=== PATIENT | female | born 1945 | race Caucasian/White ===

== ENCOUNTER 2016-07-06 17:01 | Emergency (ER) | payer MEDICARE, OTHER ==
[2016-07-06 17:55] LABS: BASOPHIL 0.1 % (0-2); EOSINOPHIL 3.3 % (0-7); HCT 43.5 % (37.0-47.0); HGB 14.7 g/dl (12.5-16.0); LYMPHOCYTE 20.4 % (15-48); MCH 30.9 pg (25.0-31.0); MCHC 33.8 g/dL (32.0-36.0); MCV 91.4 fL (78.0-100.0); MONOCYTE 7.8 % (0-12); MPV 8.9 fL (6.0-9.5); NEUTROPHIL 68.4 % (41-80); PLT 254 K/uL (150-400); RBC 4.76 M/uL (4.20-5.40); WBC 7.7 K/uL (4.0-10.5)
[2016-07-06 18:06] LABS: BILIRUBIN NEGATIVE (NEGATIVE); BLOOD NEGATIVE Ery/uL (NEGATIVE); CLARITY CLEAR (CLEAR); COLOR YELLOW (YELLOW); GLUCOSE (U) NORMAL (NORMAL); KETONE (U) NEGATIVE (NEGATIVE); LEUKOCYTES NEGATIVE Leu/uL (NEGATIVE); NITRITE NEGATIVE (NEGATIVE); PROTEIN NEGATIVE (NEGATIVE); SPECIFIC GRAVITY >=1.030 (1.001-1.030); UROBILINOGEN 0.2 mg/dL (0.2-1.0); pH 5.5 (5.0-9.0)
[2016-07-06 18:17] LABS: ALBUMIN 3.9 g/dL (3.4-4.8); BILIRUBIN - TOTAL 0.6 mg/dL (0.1-1.0); GLOBULIN (CALCULATION) 3.1 g/dL (2.2-4.2); POTASSIUM 3.7 mmol/L (3.5-5.1)
== END 2016-07-06 19:24 | disposition home or self-care (01) ==
LOC: FER 17:01
PROVIDERS: Nurse Practitioner
DX: J45.909 Unspecified asthma, uncomplicated (principal); I10 Essential (primary) hypertension; Z79.899 Other long term (current) drug therapy
CPT/HCPCS: 36415; 71020; 80053; 81003; 85025; 87804; 87899; 94640; J2405; J2930

== ENCOUNTER 2016-10-15 12:44 | Emergency (ER) | payer MEDICARE, OTHER ==
[2016-10-15 13:24] LABS: INR 1.01 (0.9-1.2); PROTHROMBIN TIME 12.9 SECONDS (11.7-14.0); PTT 26.7 SECONDS (23.2-31.4)
[2016-10-15 13:26] LABS: BASOPHIL 0.3 % (0-2); EOSINOPHIL 6.8 % (0-7); HCT 43.5 % (37.0-47.0); HGB 14.6 g/dl (12.5-16.0); LYMPHOCYTE 25.1 % (15-48); MCH 29.9 pg (25.0-31.0); MCHC 33.6 g/dL (32.0-36.0); MCV 89.1 fL (78.0-100.0); MONOCYTE 9.2 % (0-12); NEUTROPHIL 58.6 % (41-80); PLT 198 K/uL (150-400); RBC 4.88 M/uL (4.20-5.40); RDW 13.6 % (11.5-14.0); WBC 5.8 K/uL (4.0-10.5)
[2016-10-15 13:33] LABS: CKMB 2.05 ng/mL (0.97-4.94); MYOGLOBIN 38 ng/mL (26-65); TROPONIN T < 0.010 ng/mL
[2016-10-15 13:35] LABS: ALBUMIN 4.1 g/dL (3.4-4.8); BILIRUBIN - TOTAL 0.5 mg/dL (0.1-1.0); CREATININE 1.1 mg/dL (0.5-1.0); GLOBULIN (CALCULATION) 2.9 g/dL (2.2-4.2); MAGNESIUM 1.98 mg/dL (1.40-2.10); POTASSIUM 4.5 mmol/L (3.5-5.1); PRO-BNP 471 pg/mL (0-125)
== END 2016-10-15 13:30 | disposition other institution (70) ==
LOC: FER 12:44
PROVIDERS: Internal Medicine
DX: I24.9 Acute ischemic heart disease, unspecified (principal); I10 Essential (primary) hypertension; Z88.6 Allergy status to analgesic agent
CPT/HCPCS: 36415; 71010; 80053; 82550; 82553; 83735; 83874; 83880; 84484; 85025; 85610; 85730; 93005; J1644

== ENCOUNTER 2020-12-16 14:28 | Emergency (ER) | payer MEDICARE, OTHER ==
[~2020-12-16 14:28] MED LIST: BAYER CHEWABLE81 MG PO; NITROQUIK SL0.4 MG SL; NORVASC5 MG PO; OS-CAL500 MG PO; PRILOSEC20 MG PO; PRINIVIL20 MG PO; WELCHOL625 MG PO; XARELTO10 MG PO
[2020-12-16 18:39] LABS: BASOPHIL 0.1 % (0-2); EOSINOPHIL 3.3 % (0-7); HCT 39.9 % (37.0-47.0); HGB 12.6 g/dl (12.5-16.0); LYMPHOCYTE 23.9 % (15-48); MCH 28.5 pg (25.0-31.0); MCHC 31.6 g/dL (32.0-36.0); MCV 90.3 fL (78.0-100.0); MONOCYTE 8.4 % (0-12); MPV 9.1 fL (6.0-9.5); NEUTROPHIL 63.8 % (41-80); NRBC 0; PLT 220 K/uL (150-400); RBC 4.42 M/uL (4.20-5.40); RDW 15.5 % (11.5-14.0); WBC 8.3 K/uL (4.0-10.5)
[2020-12-16 19:12] LABS: PRO-BNP 918 pg/mL (<450)
[2020-12-16 19:14] LABS: BILIRUBIN - TOTAL 0.7 mg/dL (0.2-1.0); BUN/CREAT RATIO (CALC) 11.9 RATIO; C-REACTIVE PROTEIN 2.4 mg/dL (<=0.90); CREATININE 1.43 mg/dL (0.51-0.95); GLOBULIN (CALCULATION) 4.2 g/dL; POTASSIUM 4.3 mmol/L (3.5-5.1); TOTAL PROTEIN 7.2 g/dL (6.4-8.2)
[2020-12-16 19:26] LABS: LACTIC ACID 1.2 mmol/L (0.4-1.9)
[2020-12-16] MEDS ORDERED: ZOFRAN4 M1 PO (20:46)
== END 2020-12-16 21:10 | disposition home or self-care (01) ==
LOC: FER 14:28
PROVIDERS: Emergency Medicine
DX: R11.2 Nausea with vomiting, unspecified (principal); R91.1 Solitary pulmonary nodule; I25.2 Old myocardial infarction; Z98.890 Other specified postprocedural states; Z88.5 Allergy status to narcotic agent; Z88.1 Allergy status to other antibiotic agents; Z85.21 Personal history of malignant neoplasm of larynx; Z85.3 Personal history of malignant neoplasm of breast
CPT/HCPCS: 36415; 71045; 71250; 80053; 82728; 83605; 83615; 83690; 83735; 83880; 84145; 84484; 85025; 86140; 93005; 94664; J1170; J2405; J2930; J7030

== ENCOUNTER → 2021-03-29 | Day surgery (SDC) | payer MEDICARE, OTHER ==
[~2021-03-29] VITALS: Ht 167.6 cm; Wt 77.3 kg
[~2021-03-29] MED LIST changes: +PRESERVISION A1 EAC2 PO; +ULTRAM50 MG PO; +ZOFRAN4 M1 PO
[2021-03-29 11:51] LABS: BUN/CREAT RATIO (CALC) 10.1 RATIO; CREATININE 1.79 mg/dL (0.51-0.95); POTASSIUM 4.1 mmol/L (3.5-5.1)
== END | disposition home or self-care (01) ==
LOC: FAS 10:56
PROVIDERS: Anesthesiology
DX: C34.90 Malignant neoplasm of unspecified part of unspecified bronchus or lung (principal); C79.9 Secondary malignant neoplasm of unspecified site; I25.2 Old myocardial infarction; J45.909 Unspecified asthma, uncomplicated; I25.10 Atherosclerotic heart disease of native coronary artery without angina pectoris; E11.9 Type 2 diabetes mellitus without complications; I10 Essential (primary) hypertension; E66.9 Obesity, unspecified; K21.9 Gastro-esophageal reflux disease without esophagitis; Z85.3 Personal history of malignant neoplasm of breast; Z95.1 Presence of aortocoronary bypass graft; Z79.01 Long term (current) use of anticoagulants; Z79.82 Long term (current) use of aspirin; Z86.73 Personal history of transient ischemic attack (TIA), and cerebral infarction without residual deficits; Z88.4 Allergy status to anesthetic agent; Z88.1 Allergy status to other antibiotic agents; Z88.2 Allergy status to sulfonamides; Z88.8 Allergy status to other drugs, medicaments and biological substances; Z87.891 Personal history of nicotine dependence
CPT/HCPCS: 36415; 71045; 76000; 80048; C1788; J0690; J1644; J1885; J2250; J2405; J2543; J2704; J3010; J7030; J7120

== ENCOUNTER 2021-04-09 11:23 | Emergency (ER) | payer MEDICARE, OTHER ==
[~2021-04-09] VITALS: Ht 154.9 cm; Wt 75.3 kg
[2021-04-09 12:32] LABS: BASOPHIL 0.3 % (0-2); EOSINOPHIL 9.1 % (0-7); HCT 39.1 % (37.0-47.0); HGB 12.6 g/dl (12.5-16.0); LYMPHOCYTE 12.4 % (15-48); MCH 28.1 pg (25.0-31.0); MCHC 32.2 g/dL (32.0-36.0); MCV 87.3 fL (78.0-100.0); MONOCYTE 6.3 % (0-12); MPV 9.5 fL (6.0-9.5); NEUTROPHIL 70.8 % (41-80); NRBC 0; PLT 273 K/uL (150-400); RBC 4.48 M/uL (4.20-5.40); WBC 7.2 K/uL (4.0-10.5)
[2021-04-09 12:45] LABS: BUN/CREAT RATIO (CALC) 23.3 RATIO; CREATININE 1.2 mg/dL (0.51-0.95); MAGNESIUM 1.9 mg/dL (1.8-2.4); POTASSIUM 3.7 mmol/L (3.5-5.1)
[2021-04-09 13:01] LABS: BILIRUBIN 1+ mg/dL (NEGATIVE); BLOOD NEGATIVE Ery/uL (NEGATIVE); CLARITY CLEAR (CLEAR); COLOR YELLOW (YELLOW); GLUCOSE (U) NORMAL (NORMAL); LEUKOCYTES NEGATIVE Leu/uL (NEGATIVE); NITRITE NEGATIVE (NEGATIVE); PROTEIN NEGATIVE (NEGATIVE); SPECIFIC GRAVITY 1.025 (1.001-1.030); UROBILINOGEN 0.2 mg/dL (0.2-1.0)
[2021-04-09 13:56] LABS: CORONAVIRUS 2019 SARS-COV-2 NEGATIVE (NEGATIVE); INFLUENZA A NAA NEGATIVE (NEGATIVE)
== END 2021-04-09 17:15 | disposition home or self-care (01) ==
LOC: FER 11:23
PROVIDERS: Internal Medicine
DX: E86.0 Dehydration (principal); R53.1 Weakness; I10 Essential (primary) hypertension; Z88.2 Allergy status to sulfonamides; Z88.5 Allergy status to narcotic agent; Z20.822 Contact with and (suspected) exposure to COVID-19
CPT/HCPCS: 36415; 71045; 71250; 80048; 81003; 83735; 84145; 85025; J2270; J7030; J7120; U0002